=== PATIENT | male | born 1960 | race Caucasian/White ===

== ENCOUNTER 2018-05-03 16:51 | Inpatient (IN) ==
[2018-05-03] MEDS ORDERED: ASPIRIN 325 MG TABLET PO STA (16:58)
[2018-05-03] MEDS ORDERED: ONDANSETRON 4 MG/2 ML VIAL IV STA (16:58)
[2018-05-03] MEDS ORDERED: HEPARIN 5,000 UNIT/1 ML VIAL IV ONE (16:58)
[2018-05-03] MEDS ORDERED: NITROGLYCERIN SL 0.4 MG TABLET SL PRN (16:58)
[2018-05-03] MEDS ORDERED: NITROGLYCERIN 2% OINT 1 INCH/GM PACK TOP STA (16:58)
[2018-05-03] MEDS ORDERED: TICAGRELOR 90 MG TABLET PO STA (16:58)
[2018-05-03] MEDS ORDERED: HEPARIN 5,000 UNIT/1 ML VIAL ONE (17:01)
[2018-05-03] MEDS ORDERED: TICAGRELOR 90 MG TABLET ONE (17:01)
[2018-05-03] MEDS ORDERED: TIROFIBAN IV ONE (17:03)
[2018-05-03] MEDS ORDERED: TIROFIBAN 5,000 MCG/100 ML PREMIX IV ONE (17:05)
[2018-05-03 17:09] LABS: Basophils % 0.3 % (0.0-0.8); Eosinophils # 0.2 10*3/uL (0.0-0.87); Hematocrit 42.9 VOL% (42.0-52.0); Hemoglobin 14.4 GM/DL (14.0-18.0); Immature Granulocytes % 0.5 %; Immature Granulocytes Absolute 0.04 #; Lymphocytes # 1.4 10*3/uL (1.4-4.0); Lymphocytes % 18.1 % (21.2-54.2); Mean Corpuscular HGB Conc 33.6 GM/DL (32-36); Mean Corpuscular Hemoglobin 31 PG (27-34); Mean Corpuscular Volume 93.1 FL (87-102); Mean Platelet Volume 11.7 FL (9.6-12.0); Monocytes # 0.6 10*3/uL (0.11-0.8); Monocytes % 7.7 % (1.7-12.7); Neutrophils # 5.5 10*3/uL (1.4-7.4); Neutrophils % 71.4 % (38.7-73.9); Platelet Count 140 T/CUMM (130-400); Red Blood Count 4.61 MC/CUMM (3.8-5.5); Red Cell Distribution Width 13.5 % (9.3-17.3); White Blood Count 7.7 T/CUMM (4-12)
[2018-05-03] MEDS ORDERED: LIDOCAINE 1% 20 ML VIAL ONE (17:13)
[2018-05-03] MEDS ORDERED: diphenhydrAMINE 50 MG/1 ML VIAL ONE (17:16)
[2018-05-03] MEDS ORDERED: fentaNYL 100 MCG/2 ML VIAL ONE (17:16)
[2018-05-03] MEDS ORDERED: methylPREDNISolone SOD SUC 125 MG/2 ML VIAL ONE (17:16)
[2018-05-03] MEDS ORDERED: MIDAZOLAM 2 MG/2 ML VIAL ONE (17:16)
[2018-05-03 17:27] LABS: Alanine Aminotransferase 39 U/L (16-61); Albumin 3.6 G/DL (3.4-5.0); Alkaline Phosphatase 103 U/L (45-117); Aspartate Amino Transferase 19 U/L (0-37); Bilirubin,Total < 0.39 MG/DL (0.2-1.0); Blood Urea Nitrogen 17 MG/DL (7-18); Calcium 8.6 MG/DL (8.5-10.1); Glucose 172 MG/DL (74-106); Osmolality,Calculated 288.1 MOS/KG (273-304); Sodium 142 MMOL/L (136-145); Total Protein 6.5 G/DL (6.4-8.3)
[2018-05-03] MEDS ORDERED: TIROFIBAN 5,000 MCG/100 ML PREMIX IV SCH (17:30)
[2018-05-03] MEDS ORDERED: NITROGLYCERIN DRIP 50 MG/250 ML BOTTLE IV ONE (17:51)
[2018-05-03] MEDS ORDERED: MAGNESIUM SULF RIDER 4 GM in PREMIX 1 EACH IV PRN (18:04)
[2018-05-03] MEDS ORDERED: MAGNESIUM SULF RIDER 2 GM in PREMIX 1 EACH IV PRN (18:04)
[2018-05-03] MEDS ORDERED: ALUMINUM/MAGNES/SIMETH MAX STR 30 ML UDCUP PO PRN (18:04)
[2018-05-03] MEDS ORDERED: ONDANSETRON 4 MG/2 ML VIAL IV PRN (18:04)
[2018-05-03] MEDS ORDERED: DOCUSATE SODIUM 100 MG CAPSULE PO PRN (18:04)
[2018-05-03] MEDS ORDERED: ZALEPLON 5 MG CAPSULE PO PRN ×2 (18:04→18:08)
[2018-05-03] MEDS ORDERED: HYDROmorphone 2 MG/1 ML VIAL IV PRN (18:08)
[2018-05-03] MEDS ORDERED: DEXTROSE 5% NACL 0.45% 1,000 ML IV SCH (18:30)
[2018-05-03] MEDS ORDERED: SODIUM CHLORIDE 0.9% 1,000 ML IV SCH (18:30)
[2018-05-03] MEDS: CARVEDILOL 6.25 MG TABLET PO SCH (20:58)
[2018-05-03] MEDS: TICAGRELOR 90 MG TABLET PO SCH (20:58)
[2018-05-03] MEDS: ACETAMINOPHEN 325 MG TABLET PO PRN (20:58)
[2018-05-03] MEDS: ATORVASTATIN 40 MG TABLET PO SCH (20:58)
[2018-05-03 22:07] LABS: Apearance,Urine CLEAR (Clear); Bilirubin,Urine Negative (Negative); Blood, Urine Negative (Negative); Glucose,Urine (UA) Negative (Negative); Ketones,Urine Negative (Negative); Mucus,Urine Occasional /LPF (Occasional); Nitrite,Urine Negative (Negative); Protein,Urine Negative; RBC,Urine 2 /HPF (0-4); Squamous Epithelial Cell,Urine Occasional /HPF (0-10); Urine Color Yellow (Yellow); Urine Specific Gravity > 1.060 (1.001-1.035); WBC,Urine 1 /HPF (0-6)
[2018-05-03 22:40] LABS: Barbiturates Screen,Urine Negative (Negative); Benzodiazepines Screen,Urine Positive (Negative); Cannabinoid Screen,Urine Negative (Negative); Opiate Screen,Urine Positive (Negative); Phencyclidine Screen,Urine Negative (Negative)
[2018-05-04] MEDS: ACETAMINOPHEN 325 MG TABLET PO PRN (01:03)
[2018-05-04 04:33] LABS: Basophils % 0.1 % (0.0-0.8); Hematocrit 42.1 VOL% (42.0-52.0); Immature Granulocytes % 0.6 %; Immature Granulocytes Absolute 0.05 #; Lymphocytes # 0.6 10*3/uL (1.4-4.0); Lymphocytes % 6.7 % (21.2-54.2); Mean Corpuscular HGB Conc 33.3 GM/DL (32-36); Mean Corpuscular Hemoglobin 31 PG (27-34); Mean Corpuscular Volume 93.3 FL (87-102); Mean Platelet Volume 11.8 FL (9.6-12.0); Monocytes # 0.1 10*3/uL (0.11-0.8); Monocytes % 1.4 % (1.7-12.7); Neutrophils # 8.2 10*3/uL (1.4-7.4); Neutrophils % 91.2 % (38.7-73.9); Platelet Count 141 T/CUMM (130-400); Red Blood Count 4.51 MC/CUMM (3.8-5.5); Red Cell Distribution Width 13.2 % (9.3-17.3)
[2018-05-04 05:02] LABS: CKMB % 7.9 %; Osmolality,Calculated 284.4 MOS/KG (273-304); Potassium 4.1 MMOL/L (3.5-5.1); Risk Ratio 5.47
[2018-05-04 05:04] LABS: Lymphocytes 6 % (20-55); Platelet Estimate Normal; Segmented Neutrophils 93 % (50-85); Total Cells Counted 100
[2018-05-04] MEDS: PANTOPRAZOLE 40 MG TABLET PO SCH (09:03)
[2018-05-04] MEDS: TICAGRELOR 90 MG TABLET PO SCH ×2 (09:03→20:23)
[2018-05-04] MEDS: ASPIRIN EC 81 MG TABLET PO SCH (09:03)
[2018-05-04] MEDS: CARVEDILOL 6.25 MG TABLET PO SCH ×2 (09:03→17:02)
[2018-05-04] MEDS ORDERED: predniSONE 1 MG TABLET PO SCH (11:30)
[2018-05-04] MEDS: FOLIC ACID 1 MG TABLET PO SCH (12:24)
[2018-05-04] MEDS: ATORVASTATIN 40 MG TABLET PO SCH (20:23)
[2018-05-05 04:34] LABS: Basophils % 0.2 % (0.0-0.8); Eosinophils # 0.1 10*3/uL (0.0-0.87); Eosinophils % 0.7 % (0.00-10.9); Hematocrit 39.1 VOL% (42.0-52.0); Hemoglobin 12.9 GM/DL (14.0-18.0); Immature Granulocytes % 0.6 %; Immature Granulocytes Absolute 0.05 #; Lymphocytes % 23.3 % (21.2-54.2); Mean Corpuscular Hemoglobin 31 PG (27-34); Mean Corpuscular Volume 93.8 FL (87-102); Mean Platelet Volume 12.3 FL (9.6-12.0); Monocytes # 0.8 10*3/uL (0.11-0.8); Monocytes % 9.5 % (1.7-12.7); Neutrophils # 5.8 10*3/uL (1.4-7.4); Neutrophils % 65.7 % (38.7-73.9); Platelet Count 115 T/CUMM (130-400); Red Blood Count 4.17 MC/CUMM (3.8-5.5); Red Cell Distribution Width 13.6 % (9.3-17.3); White Blood Count 8.8 T/CUMM (4-12)
[2018-05-05 04:49] LABS: Calcium 8.5 MG/DL (8.5-10.1); Potassium 3.8 MMOL/L (3.5-5.1)
[2018-05-05 08:10] VITALS: BP 137/73
[2018-05-05] MEDS: CARVEDILOL 6.25 MG TABLET PO SCH (08:40)
[2018-05-05] MEDS: FOLIC ACID 1 MG TABLET PO SCH (08:40)
[2018-05-05] MEDS: ASPIRIN EC 81 MG TABLET PO SCH (08:40)
[2018-05-05] MEDS: TICAGRELOR 90 MG TABLET PO SCH (08:40)
[2018-05-05] MEDS: PANTOPRAZOLE 40 MG TABLET PO SCH (08:40)
[2018-05-10] MEDS ORDERED: METHOTREXATE 2.5 MG TABLET PO SCH (09:00)
== END 2018-05-05 12:38 | disposition home or self-care (01) | DRG 247 ==
LOC: EDUNIT# → EDBD → N.ED 16:51 → N.EDINP 17:37 → N.TELES 18:16
PROVIDERS: ADMIT Internal Medicine Cardiovascular Disease; ATTEND Internal Medicine Cardiovascular Disease
PROC: CLCCHCL (ICD-10-PCS; 2018-05-03 17:45)